=== PATIENT | female | born 1960 | race Asian ===

== ENCOUNTER 2018-08-07 22:09 | Emergency (ER) | payer OTHER, MEDICAID ==
[2018-08-08] MEDS ORDERED: BRINZOLAMIDE 1% 10ML OPH LEFT EYE (01:30)
[2018-08-08 02:32] LABS: ADD MAN DIFF? NO
[2018-08-08 02:34] LABS: WHITE BLOOD COUNT 7.6 10^3/ul (4.8-10.8)
[2018-08-08 02:34] LABS: BASOPHILS % 0.3 % (0.0-2.0); EOSINOPHILS # 0.1 10^3/ul (0.0-0.5); EOSINOPHILS % 0.8 % (0.0-7.0); HEMATOCRIT 41.7 % (37.0-47.0); HEMOGLOBIN 13.6 g/dl (12.0-16.0); LYMPHOCYTES # 2.4 10^3/ul (0.8-2.9); LYMPHOCYTES % 30.9 % (15.0-51.0); MEAN CORPUSCULAR HEMOGLOBIN 29.4 pg (29.0-33.0); MEAN CORPUSCULAR HGB CONC 32.6 g/dl (32.0-37.0); MEAN CORPUSCULAR VOLUME 90.3 fl (82.0-101.0); MEAN PLATELET VOLUME 9.4 fl (7.4-10.4); MONOCYTE # 0.5 10^3/ul (0.3-0.9); MONOCYTES % 6.6 % (0.0-11.0); NEUTROPHIL # 4.7 10^3/ul (1.6-7.5); NEUTROPHILS % 61.1 % (39.0-77.0); PLATELET COUNT 275 10^3/UL (140-415); RED BLOOD COUNT 4.62 10^6/ul (4.20-5.40); RED CELL DISTRIBUTION WIDTH 12.2 % (11.5-14.5)
[2018-08-08] MEDS: ACETAZOLAMIDE 500 MG INJ IV (02:38)
[2018-08-08] MEDS: TIMOLOL 0.5% 5 ML OPH LEFT EYE (02:38)
[2018-08-08] MEDS: APRACLONIDINE 1% 0.1 ML OPH LEFT EYE (02:38)
[2018-08-08] MEDS: PILOCARPINE 4% 15ML OPH LEFT EYE (02:39)
[2018-08-08 02:52] LABS: ALANINE AMINOTRANSFERASE 21 IU/L (13-69); ALBUMIN 4.5 g/dl (3.3-4.9); ALKALINE PHOSPHATASE 63 IU/L (42-121); ANION GAP 12 (5-13); ASPARTATE AMINO TRANSFERASE 25 IU/L (15-46); BILIRUBIN,INDIRECT 0.6 mg/dl (0-1.1); BILIRUBIN,TOTAL 0.6 mg/dl (0.2-1.3); BLOOD UREA NITROGEN 14 mg/dl (7-20); CALCIUM 9.4 mg/dl (8.4-10.2); CARBON DIOXIDE 28 mmol/L (21-31); CHLORIDE 102 mmol/L (97-110); CREATININE 0.61 mg/dl (0.44-1.00); Estimated GFR > 60 mL/min (>60); GLUCOSE 136 mg/dl (70-220); LIPASE 157 U/L (23-300); POTASSIUM 4.1 mmol/L (3.5-5.1); SODIUM 142 mmol/L (135-144); TOTAL PROTEIN 7.7 g/dl (6.1-8.1)
[2018-08-08 03:05] LABS: INR 0.87; PROTIME 11.9 Sec (11.9-14.9); PT RATIO 0.9
[2018-08-08 03:06] LABS: PARTIAL THROMBOPLASTIN TIME 27.6 Sec (23.0-35.0)
[2018-08-08] MEDS: ONDANSETRON 4 MG INJ IV (03:22)
[2018-08-08] MEDS: morphine 4 MG/ML VIAL IV (03:23)
[2018-08-08] MEDS: TETRACAINE 0.5% 4 ML OPH BOTH EYES (09:21)
[2018-08-08] MEDS: BRIMONIDINE 0.2% 5 ML BTL BOTH EYES (10:04)
[2018-08-08] MEDS: DORZOLAMIDE/TIMOLOL/PF 0.2 ML DROPERETTE BOTH EYES (10:04)
== END 2018-08-08 11:15 | disposition home or self-care (01) ==
LOC: FTE 22:09 → E/R 08-08 11:15
DX: H40.219 Acute angle-closure glaucoma, unspecified eye (principal); I10 Essential (primary) hypertension; E11.9 Type 2 diabetes mellitus without complications
CPT/HCPCS: 36415; 80053; 83690; 85025; 85610; 85730; 96374; 96375; 99284-25